=== PATIENT | female | born 2000 | race African-American/Black ===

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

== ENCOUNTER 2019-07-02 17:54 | Emergency (ER) | payer MEDICAID ==
[~2019-07-02] VITALS: Ht 165.1 cm; Wt 55.0 kg
[2019-07-02] MEDS ORDERED: ACETAMINOPHEN 325MG TABLET PO ONE (20:15)
[2019-07-02 21:14] VITALS: BP 110/67
== END 2019-07-02 21:15 | disposition home or self-care (01) ==
LOC: ER 17:54
DX: S50.01XA Contusion of right elbow, initial encounter (principal); W22.8XXA Striking against or struck by other objects, initial encounter; Y93.39 Activity, other involving climbing, rappelling and jumping off; Y92.89 Other specified places as the place of occurrence of the external cause
CPT/HCPCS: 73070; 99283

== ENCOUNTER 2019-07-03 21:40 | Emergency (ER) | payer MEDICAID ==
[~2019-07-03] VITALS: Ht 165.1 cm; Wt 53.0 kg
[2019-07-03 21:48] VITALS: BP 128/76
== END 2019-07-03 22:17 | disposition left against medical advice (07) ==
LOC: ER 21:40
DX: R06.02 Shortness of breath (principal); Z53.21 Procedure and treatment not carried out due to patient leaving prior to being seen by health care provider

== ENCOUNTER 2019-11-02 20:15 | Emergency (ER) | payer SELFPAY ==
[~2019-11-02] VITALS: Ht 162.6 cm; Wt 59.0 kg
[2019-11-02] MEDS ORDERED: IBUPROFEN 600MG TABLET PO ONE (20:30)
[2019-11-02] MEDS ORDERED: ACETAMINOPHEN WITH CODEINE 300/30MG TABLET PO ONE (20:45)
[2019-11-02 21:56] VITALS: BP 110/71
== END 2019-11-02 21:57 | disposition home or self-care (01) ==
LOC: ER 20:15
DX: S62.336A Displaced fracture of neck of fifth metacarpal bone, right hand, initial encounter for closed fracture (principal); S50.01XA Contusion of right elbow, initial encounter; Z91.048 Other nonmedicinal substance allergy status; Y04.0XXA Assault by unarmed brawl or fight, initial encounter; Y93.89 Activity, other specified; Y92.89 Other specified places as the place of occurrence of the external cause; Y99.8 Other external cause status
CPT/HCPCS: 29105; 73080; 73090; 73130; 81025; 99283

== ENCOUNTER 2019-12-10 05:37 | Emergency (ER) | payer MEDICAID ==
[~2019-12-10] VITALS: Ht 165.1 cm; Wt 54.0 kg
[2019-12-10] MEDS ORDERED: IBUPROFEN 600MG TABLET PO ONE (06:15)
[2019-12-10] MEDS ORDERED: BACITRACIN ZINC OINT UDPKT TOP ONE (06:15)
[2019-12-10 06:19] VITALS: BP 110/65
== END 2019-12-10 08:35 | disposition left against medical advice (07) ==
LOC: ER 05:37
DX: M25.531 Pain in right wrist (principal)
CPT/HCPCS: 73090; 73130; 81025; 99284

== ENCOUNTER 2019-12-13 16:34 | Emergency (ER) | payer MEDICAID ==
[~2019-12-13] VITALS: Ht 165.1 cm; Wt 65.0 kg
[2019-12-13 17:20] VITALS: BP 124/74
[2019-12-13] MEDS ORDERED: IBUPROFEN 600MG TABLET PO STA (18:56)
== END 2019-12-13 19:41 | disposition home or self-care (01) ==
LOC: ER 16:44
DX: S62.341A Nondisplaced fracture of base of second metacarpal bone, left hand, initial encounter for closed fracture (principal); Z59.0 Homelessness; Z91.048 Other nonmedicinal substance allergy status; W22.8XXA Striking against or struck by other objects, initial encounter; Y93.89 Activity, other specified; Y92.89 Other specified places as the place of occurrence of the external cause; Y99.8 Other external cause status
CPT/HCPCS: 29130; 73200; 99284

== ENCOUNTER 2020-04-25 10:20 | Emergency (ER) | payer MEDICAID ==
[~2020-04-25] VITALS: Ht 162.6 cm; Wt 50.0 kg
[2020-04-25] MEDS ORDERED: PREDNISONE 20MG TABLET PO STA (12:07)
[2020-04-25] MEDS ORDERED: IPRATROPIUM BROMIDE (0.02%) 0.5MG/2.5ML NEB HHN STA (12:07)
[2020-04-25] MEDS ORDERED: ALBUTEROL (0.083%) 2.5MG/3ML NEB HHN STA (12:07)
[2020-04-25] MEDS ORDERED: ACETAMINOPHEN 325MG TABLET PO ONE (12:15)
[2020-04-25] MEDS ORDERED: ALBUTEROL (0.083%) 2.5MG/3ML NEB ONE (12:35)
[2020-04-25] MEDS ORDERED: IPRATROPIUM BROMIDE (0.02%) 0.5MG/2.5ML NEB ONE (12:35)
[2020-04-25 12:46] VITALS: BP 110/65
== END 2020-04-25 13:33 | disposition home or self-care (01) ==
LOC: ER 10:28
DX: R05 Cough (principal)
CPT/HCPCS: 71045; 81025; 94640; 99283; J7512; Z7610